=== PATIENT | male | born 1980 | race Asian ===

== ENCOUNTER 2020-04-07 19:04 | Emergency (ER) | payer BC ==
--- NOTE | 2020-04-07 21:03 | ER Document Report ---
ED General - General Chief Complaint: Headache Stated Complaint: HEADACHE,VOMITING,CHILLS Time Seen by Provider: 04/07/20 20:43 Primary Care Provider: [facility] [Provider Group] - Follow up as needed Mode of Arrival: Ambulatory Information source: Patient Notes: Patient is a 39-year-old male comes emergency room complaining of a headache and vomiting. Patient states that he ate at a cookout last night when he woke up today he was sick to his stomach and vomited twice. The vomiting caused him to have a slight headache on the right side of his head. He did take some Tylenol that helped the headache some but is not completely gone. He states that his workers requested he come get a examination to make sure he can go back to work. Patient denies any other medical problems. He denies smoking. He has no chest pain shortness of breath or diarrhea. He has had no fevers. He has had no upper respiratory symptoms. He also states that he believes that the food he ate from the cookout upset his stomach. Patient denies any contact with anyone known to have COVID-19. He wears a mask at work and outside. Patient states that since he vomited the 2 times in consecutive order his nausea and vomiting have subsided and gone away. TRAVEL OUTSIDE OF THE [place] IN LAST 30 DAYS: No - HPI Onset: Yesterday Onset/Duration: Sudden, Better Quality of pain: No pain Severity: Mild Pain Level: 1 Associated symptoms: Headache, Nausea, Vomiting. denies: Body/muscle aches, Chest pain, Chills, Nonproductive cough, Productive cough, Diarrhea, Fever Exacerbated by: Denies Similar symptoms previously: No Recently seen / treated by doctor: No - Related Data Allergies/Adverse Reactions: No Known Allergies Allergy (Unverified 04/07/20 20:50) Past Medical History - Social History Smoking Status: Never Smoker Cigarette use (# per day): No Chew tobacco use (# tins/day): No Smoking Education Provided: No Frequency of alcohol use: None Drug Abuse: None Lives with: Family Family History: Reviewed & Not Pertinent Review of Systems - Review of Systems Constitutional: See HPI. denies: Fever EENT: No symptoms reported Cardiovascular: No symptoms reported Respiratory: denies: Cough, Short of breath, Wheezing Gastrointestinal: See HPI, Nausea, Vomiting. denies: Abdominal pain Genitourinary: No symptoms reported Male Genitourinary: No symptoms reported Musculoskeletal: See HPI. denies: Joint swelling, Muscle pain Skin: No symptoms reported Hematologic/Lymphatic: No symptoms reported Neurological/Psychological: See HPI, Headaches -: Yes All other systems reviewed and negative Physical Exam - Vital signs Vitals: Temp Pulse Resp BP Pulse Ox 97.8 F 88 18 130/84 H 100 04/07/20 19:24 04/07/20 19:24 04/07/20 19:24 04/07/20 19:24 04/07/20 19:24 Interpretation: Hypertensive - Notes Notes: PHYSICAL EXAMINATION: GENERAL: Well-appearing, well-nourished and in no acute distress. HEAD: Atraumatic, normocephalic. EYES: Pupils equal round and reactive to light, extraocular movements intact, sclera anicteric, conjunctiva are normal. ENT: Nares patent, oropharynx clear without exudates. Moist mucous membranes. NECK: Normal range of motion, supple without lymphadenopathy LUNGS: Breath sounds clear to auscultation bilaterally and equal. No wheezes rales or rhonchi. HEART: Regular rate and rhythm without murmurs ABDOMEN: Soft, nontender, nondistended abdomen. No guarding, no rebound. No masses appreciated. Musculoskeletal: Normal range of motion, no pitting or edema. No cyanosis. NEUROLOGICAL: Normal speech, normal gait. Normal sensory, motor exams PSYCH: Normal mood, normal affect. SKIN: Warm, Dry, normal turgor, no rashes or lesions noted. Course - Re-evaluation Re-evalutation: 04/07/20 21:03 After physical exam of the patient and discussing with him did not feel was necessary to go any further with other methods of diagnosis. Patient is feeling much better since he vomited up the food that he ate the night before. He still has a slight headache but is gotten better. Vital signs are all stable. He has had no nausea or vomiting since that 2 times. He has had no diarrhea, no fever, no shortness of breath, no chest pain, no sore throat, therefore I do not feel it is necessary to test him for COVID since he has had no known associations. I did however offer that option to him and at this point he does not want to have it done. Given that I believe this to be a gastroenteritis type of a pr esentation with the belly exam being normal and no vomiting since early this afternoon. I have informed him that I cannot tell him for certain he does not have the COVID 19 unless we test him in patient states he does not want to be at work Tylenol and does not think he has it either. Given that we will can send patient back to work since he is wearing a mask and doing social distancing. - Vital Signs Vital signs: Temp Pulse Resp BP Pulse Ox 98.5 F 79 18 134/90 H 100 04/07/20 21:45 04/07/20 21:45 04/07/20 21:45 04/07/20 21:45 04/07/20 21:45 Discharge - Discharge Clinical Impression: Nausea & vomiting Qualifiers: Vomiting type: unspecified Vomiting Intractability: non-intractable Qualified Code(s): R11.2 - Nausea with vomiting, unspecified Condition: Stable Disposition: HOME, SELF-CARE Instructions: Headache ([facility]), Vomiting ([facility]) Additional Instructions: As we have discussed your presentation does not follow the guidelines for COVID- 19. Your story goes along with having some bad food. You can take Tylenol Motrin for the headache as we discussed. If you spike a fever or have increasing symptoms to include diarrhea return to ER for reevaluation. As have indicated to you without doing a COVID-19 test I cannot specifically tell you you do not have it. So if the symptoms worsen return to ER for evaluation. Continue to wear your mask when out in public at work. Forms: Elevated Blood Pressure, Return to Work Referrals: [facility] [Provider Group] - Follow up as needed
[2020-04-07 21:59] VITALS: BP 134/90
== END 2020-04-07 21:50 | disposition home or self-care (01) ==
LOC: ER 19:04
DX: R11.2 Nausea with vomiting, unspecified (principal); R51 Headache; R68.83 Chills (without fever)
CPT/HCPCS: 99282